=== PATIENT | female | born 1940 | race Caucasian/White ===

== ENCOUNTER 2021-05-02 14:48 | Outpatient (CLI) | payer MEDICARE, BC ==
[2021-05-02 15:41] LABS: #Basophils 0.1 thou/uL (0.0-0.2); #Eosinphils 0.3 thou/uL (0.0-0.7); #Lymphocytes 3.7 thou/uL (1.20-3.40); #Monocytes 0.6 thou/uL (0.11-0.59); #Neutrophils 4.2 thou/uL (1.40-6.50); %Basophils 1.4 % (0.0-1.0); %Eosinophils 2.9 % (0.0-10.0); %Lymphocytes 41.9 % (21.0-51.0); %Monocytes 6.2 % (0.0-10.0); %Neutrophils 47.5 % (42.0-75.0); Hemoglobin 13.8 g/dL (12.0-16.0); Mean Corpuscular HGB CONC 32.7 g/dL (32.0-36.0); Mean Corpuscular Hemoglobin 30.7 pg (27.0-31.0); Mean Corpuscular Volume 93.9 fL (78.0-98.0); Mean Platelet Volume 6.3 fL (7.4-10.4); Platelet Count 311 thou/uL (130-400); RBC Distribution Width 11.9 % (11.5-14.5); Red Blood Cell (RBC) Count 4.51 mill/uL (4.20-5.40); White Blood Cell (WBC) Count 8.8 thou/uL (4.8-10.8)
[2021-05-02 15:46] LABS: INR-International Normal Ratio 0.9; Prothrombin Time 12.6 sec (12.0-14.7)
[2021-05-02 15:53] LABS: Anion Gap 14 mmol/L (10-20); BUN (Urea Nitrogen) 20 mg/dL (9.8-20.1); Calc. Creatinine Clearance 0 mL/min (70-130); Calcium 9.8 mg/dL (7.8-10.44); Carbon Dioxide 27 mmol/L (23-31); Chloride 105 mmol/L (98-107); Glucose 95 mg/dL (83-110); Potassium 3.9 mmol/L (3.5-5.1); Sodium 142 mmol/L (136-145)
[2021-05-03 01:42] LABS: SARS-CoV-2 PCR by NAA Not Detected (NotDetected)
== END 2021-05-02 14:49 | disposition home or self-care (01) ==
LOC: MADLAB 14:48
PROVIDERS: ATTEND Orthopaedic Surgery
DX: Z01.812 Encounter for preprocedural laboratory examination (principal); T84.54XA Infection and inflammatory reaction due to internal left knee prosthesis, initial encounter; Z20.822 Contact with and (suspected) exposure to COVID-19
CPT/HCPCS: 36415; 80048; 85025; 85610; U0003; U0005

== ENCOUNTER 2021-05-16 13:51 | Inpatient (IN) | payer MEDICARE, BC ==
[2021-05-16] MEDS ORDERED: traMADol HCl 50 MG TAB PO PRN ×2 (17:32)
[2021-05-16] MEDS ORDERED: Melatonin 3 MG TAB PO PRN (17:32)
[2021-05-16] MEDS ORDERED: Triamterene/Hydrochlorothiazide 37.5 mg/25 mg Tablet PO SCH (18:08)
[2021-05-16] MEDS ORDERED: cefTRIAXone\\ROCEPHIN 2 GM in Sodium Chloride 0.9% 100 ML IVPB SCH (18:30)
[2021-05-16] MEDS: cefTRIAXone\\ROCEPHIN 2 GM in Sodium Chloride 0.9% 100 ML IVPB SCH (20:22)
[2021-05-16] MEDS: Aspirin 81 mg Enteric Coated Tablet PO SCH (20:23)
[2021-05-16] MEDS: Ferrous Gluconate 324 MG TAB PO SCH (20:23)
[2021-05-16] MEDS: Senokot S 8.6-50 MG TAB PO SCH (20:23)
[2021-05-16] MEDS: Metoprolol Tartrate 25 MG TAB PO SCH (20:23)
[2021-05-17] MEDS: Levothyroxine Sodium 125 MCG TAB PO SCH (05:11)
[2021-05-17 05:30] LABS: #Basophils 0.2 thou/uL (0.0-0.2); #Eosinphils 0.4 thou/uL (0.0-0.7); #Lymphocytes 4.5 thou/uL (1.20-3.40); #Monocytes 0.9 thou/uL (0.11-0.59); #Neutrophils 4.2 thou/uL (1.40-6.50); %Basophils 1.6 % (0.0-1.0); %Eosinophils 3.5 % (0.0-10.0); %Lymphocytes 44.5 % (21.0-51.0); %Neutrophils 41.5 % (42.0-75.0); Hemoglobin 13.6 g/dL (12.0-16.0); Mean Corpuscular HGB CONC 32.5 g/dL (32.0-36.0); Mean Corpuscular Hemoglobin 30.7 pg (27.0-31.0); Mean Corpuscular Volume 94.3 fL (78.0-98.0); Mean Platelet Volume 6.5 fL (7.4-10.4); Platelet Count 517 thou/uL (130-400); RBC Distribution Width 11.9 % (11.5-14.5); Red Blood Cell (RBC) Count 4.43 mill/uL (4.20-5.40); White Blood Cell (WBC) Count 10.2 thou/uL (4.8-10.8)
[2021-05-17 05:40] LABS: Anion Gap 13 mmol/L (10-20); BUN (Urea Nitrogen) 14 mg/dL (9.8-20.1); Calc. Creatinine Clearance 60 mL/min (70-130); Calcium 9.1 mg/dL (7.8-10.44); Carbon Dioxide 26 mmol/L (23-31); Chloride 102 mmol/L (98-107); Glucose 117 mg/dL (83-110); Potassium 3.2 mmol/L (3.5-5.1); Sodium 138 mmol/L (136-145)
[2021-05-17] MEDS: Metoprolol Tartrate 25 MG TAB PO SCH ×2 (08:38→20:08)
[2021-05-17] MEDS: Multivit, Therapeutic 1 TAB PO SCH (08:38)
[2021-05-17] MEDS: Senokot S 8.6-50 MG TAB PO SCH ×2 (08:38→20:07)
[2021-05-17] MEDS: Aspirin 81 mg Enteric Coated Tablet PO SCH ×2 (08:39→20:06)
[2021-05-17] MEDS: Ferrous Gluconate 324 MG TAB PO SCH ×2 (08:39→20:16)
[2021-05-17] MEDS: Potassium Chloride 10 MEQ TAB PO SCH (08:39)
[2021-05-17] MEDS ORDERED: Vancomycin HCl 750 MG in Sodium Chloride 0.9% 250 ML 250 ML IVPB SCH (09:00)
[2021-05-17] MEDS ORDERED: Vancomycin HCl 1 GM in Sodium Chloride 0.9% 250 ML 250 ML IVPB SCH (10:00)
[2021-05-17] MEDS ORDERED: cefTRIAXone\\ROCEPHIN 2 GM VIAL IVPB SCH (13:00)
[2021-05-17] MEDS: cefTRIAXone\\ROCEPHIN 2 GM in Sodium Chloride 0.9% 100 ML IVPB SCH (19:27)
[2021-05-18] MEDS: Levothyroxine Sodium 125 MCG TAB PO SCH (05:22)
[2021-05-18] MEDS: Aspirin 81 mg Enteric Coated Tablet PO SCH ×2 (08:47→20:19)
[2021-05-18] MEDS: Senokot S 8.6-50 MG TAB PO SCH ×2 (08:47→20:18)
[2021-05-18] MEDS: Metoprolol Tartrate 25 MG TAB PO SCH ×2 (08:47→20:18)
[2021-05-18] MEDS: Potassium Chloride 10 MEQ TAB PO SCH (08:47)
[2021-05-18] MEDS: Triamterene/Hydrochlorothiazide 37.5 mg/25 mg Tablet PO SCH (08:47)
[2021-05-18] MEDS: Multivit, Therapeutic 1 TAB PO SCH (08:47)
[2021-05-18] MEDS: Ferrous Gluconate 324 MG TAB PO SCH ×2 (08:48→20:18)
[2021-05-18] MEDS: Vancomycin HCl 750 MG in Sodium Chloride 0.9% 250 ML 250 ML IVPB SCH ×2 (08:49→10:00)
[2021-05-18] MEDS: Loratadine 10 MG TAB PO PRN (10:02)
[2021-05-18] MEDS: Acetaminophen 325 MG TAB PO PRN (20:17)
[2021-05-18] MEDS: cefTRIAXone\\ROCEPHIN 2 GM in Sodium Chloride 0.9% 100 ML IVPB SCH (20:19)
[2021-05-19] MEDS: Levothyroxine Sodium 125 MCG TAB PO SCH (05:33)
[2021-05-19] MEDS: Multivit, Therapeutic 1 TAB PO SCH (08:29)
[2021-05-19] MEDS: Potassium Chloride 10 MEQ TAB PO SCH (08:29)
[2021-05-19] MEDS: Metoprolol Tartrate 25 MG TAB PO SCH ×2 (08:29→20:08)
[2021-05-19] MEDS: Senokot S 8.6-50 MG TAB PO SCH ×2 (08:29→20:06)
[2021-05-19] MEDS: Aspirin 81 mg Enteric Coated Tablet PO SCH ×2 (08:29→20:07)
[2021-05-19] MEDS: Ferrous Gluconate 324 MG TAB PO SCH ×2 (08:29→20:07)
[2021-05-19] MEDS: Vancomycin HCl 750 MG in Sodium Chloride 0.9% 250 ML 250 ML IVPB SCH ×2 (08:30→10:03)
[2021-05-19 14:24] LABS: SARS-CoV-2 PCR by NAA Not Detected (NotDetected)
[2021-05-19] MEDS: cefTRIAXone\\ROCEPHIN 2 GM in Sodium Chloride 0.9% 100 ML IVPB SCH (19:29)
[2021-05-19] MEDS: Acetaminophen 325 MG TAB PO PRN (20:05)
[2021-05-19] MEDS: Loratadine 10 MG TAB PO PRN (20:08)
[2021-05-19] MEDS: Ondansetron ODT 4 MG TAB PO PRN (22:12)
[2021-05-20 05:21] LABS: #Basophils 0.1 thou/uL (0.0-0.2); #Eosinphils 0.4 thou/uL (0.0-0.7); #Lymphocytes 3.7 thou/uL (1.20-3.40); #Monocytes 0.6 thou/uL (0.11-0.59); #Neutrophils 3.2 thou/uL (1.40-6.50); %Basophils 1.3 % (0.0-1.0); %Eosinophils 4.4 % (0.0-10.0); %Lymphocytes 46.2 % (21.0-51.0); %Monocytes 7.7 % (0.0-10.0); %Neutrophils 40.3 % (42.0-75.0); Hemoglobin 11.7 g/dL (12.0-16.0); Mean Corpuscular HGB CONC 32.3 g/dL (32.0-36.0); Mean Corpuscular Hemoglobin 30.6 pg (27.0-31.0); Mean Platelet Volume 5.7 fL (7.4-10.4); Platelet Count 420 thou/uL (130-400); RBC Distribution Width 12.3 % (11.5-14.5); Red Blood Cell (RBC) Count 3.81 mill/uL (4.20-5.40); White Blood Cell (WBC) Count 7.9 thou/uL (4.8-10.8)
[2021-05-20 05:37] LABS: Anion Gap 14 mmol/L (10-20); BUN (Urea Nitrogen) 16 mg/dL (9.8-20.1); CRP (Inflammatory) 2.56 mg/dL (= or < 0.5); Calc. Creatinine Clearance 57 mL/min (70-130); Calcium 8.6 mg/dL (7.8-10.44); Carbon Dioxide 25 mmol/L (23-31); Chloride 108 mmol/L (98-107); Glucose 107 mg/dL (83-110); Potassium 4.1 mmol/L (3.5-5.1); Sodium 143 mmol/L (136-145)
[2021-05-20] MEDS: Levothyroxine Sodium 125 MCG TAB PO SCH (05:45)
[2021-05-20 08:15] LABS: Vancomycin, Trough 20.4 ug/mL
[2021-05-20] MEDS: Metoprolol Tartrate 25 MG TAB PO SCH ×2 (08:29→20:12)
[2021-05-20] MEDS: Aspirin 81 mg Enteric Coated Tablet PO SCH ×2 (08:29→20:12)
[2021-05-20] MEDS: Multivit, Therapeutic 1 TAB PO SCH (08:29)
[2021-05-20] MEDS: Potassium Chloride 10 MEQ TAB PO SCH (08:30)
[2021-05-20] MEDS: Senokot S 8.6-50 MG TAB PO SCH ×2 (08:30→20:13)
[2021-05-20] MEDS: Ferrous Gluconate 324 MG TAB PO SCH ×2 (08:30→20:12)
[2021-05-20] MEDS: Vancomycin HCl 750 MG in Sodium Chloride 0.9% 250 ML 250 ML IVPB SCH ×2 (08:32→08:33)
[2021-05-20] MEDS: Loratadine 10 MG TAB PO PRN (15:28)
[2021-05-20] MEDS: cefTRIAXone\\ROCEPHIN 2 GM in Sodium Chloride 0.9% 100 ML IVPB SCH (20:07)
[2021-05-20] MEDS: Acetaminophen 325 MG TAB PO PRN (21:56)
[2021-05-21] MEDS: Levothyroxine Sodium 125 MCG TAB PO SCH (05:28)
[2021-05-21] MEDS: Ondansetron ODT 4 MG TAB PO PRN (07:19)
[2021-05-21] MEDS: Vancomycin HCl 750 MG in Sodium Chloride 0.9% 250 ML 250 ML IVPB SCH ×2 (08:03)
[2021-05-21] MEDS: Metoprolol Tartrate 25 MG TAB PO SCH ×2 (08:05→20:24)
[2021-05-21] MEDS: Multivit, Therapeutic 1 TAB PO SCH (08:05)
[2021-05-21] MEDS: Triamterene/Hydrochlorothiazide 37.5 mg/25 mg Tablet PO SCH (08:05)
[2021-05-21] MEDS: Ferrous Gluconate 324 MG TAB PO SCH ×2 (08:05→20:11)
[2021-05-21] MEDS: Aspirin 81 mg Enteric Coated Tablet PO SCH ×2 (08:05→20:11)
[2021-05-21] MEDS: Senokot S 8.6-50 MG TAB PO SCH ×2 (08:05→20:10)
[2021-05-21] MEDS: Potassium Chloride 10 MEQ TAB PO SCH (08:05)
[2021-05-21] MEDS: Acetaminophen 325 MG TAB PO PRN ×2 (12:07→20:26)
[2021-05-21] MEDS: Loratadine 10 MG TAB PO PRN (15:11)
[2021-05-21] MEDS: cefTRIAXone\\ROCEPHIN 2 GM in Sodium Chloride 0.9% 100 ML IVPB SCH (20:06)
[2021-05-22] MEDS: Levothyroxine Sodium 125 MCG TAB PO SCH (05:33)
[2021-05-22 08:53] LABS: Vancomycin, Trough 18.2 ug/mL
[2021-05-22] MEDS: Potassium Chloride 10 MEQ TAB PO SCH (09:00)
[2021-05-22] MEDS: Senokot S 8.6-50 MG TAB PO SCH ×2 (09:00→20:12)
[2021-05-22] MEDS: Aspirin 81 mg Enteric Coated Tablet PO SCH ×2 (09:00→20:13)
[2021-05-22] MEDS: Metoprolol Tartrate 25 MG TAB PO SCH ×2 (09:01→20:13)
[2021-05-22] MEDS: Vancomycin HCl 750 MG in Sodium Chloride 0.9% 250 ML 250 ML IVPB SCH ×2 (09:01→09:02)
[2021-05-22] MEDS: Multivit, Therapeutic 1 TAB PO SCH (09:01)
[2021-05-22] MEDS: Ferrous Gluconate 324 MG TAB PO SCH ×2 (09:03→20:15)
[2021-05-22] MEDS: Loratadine 10 MG TAB PO PRN (14:10)
[2021-05-22] MEDS: Acetaminophen 325 MG TAB PO PRN (20:13)
[2021-05-22] MEDS: cefTRIAXone\\ROCEPHIN 2 GM in Sodium Chloride 0.9% 100 ML IVPB SCH (20:15)
[2021-05-23] MEDS: Levothyroxine Sodium 125 MCG TAB PO SCH (06:09)
[2021-05-23] MEDS: Potassium Chloride 10 MEQ TAB PO SCH (08:00)
[2021-05-23] MEDS: Multivit, Therapeutic 1 TAB PO SCH (08:35)
[2021-05-23] MEDS: Ferrous Gluconate 324 MG TAB PO SCH ×2 (08:35→20:00)
[2021-05-23] MEDS: Senokot S 8.6-50 MG TAB PO SCH ×2 (08:35→19:59)
[2021-05-23] MEDS: Triamterene/Hydrochlorothiazide 37.5 mg/25 mg Tablet PO SCH (08:36)
[2021-05-23] MEDS: Metoprolol Tartrate 25 MG TAB PO SCH ×2 (08:36→20:00)
[2021-05-23] MEDS: Aspirin 81 mg Enteric Coated Tablet PO SCH ×2 (08:36→19:59)
[2021-05-23] MEDS: Vancomycin HCl 750 MG in Sodium Chloride 0.9% 250 ML 250 ML IVPB SCH ×2 (08:37)
[2021-05-23] MEDS: Loratadine 10 MG TAB PO PRN (15:18)
[2021-05-23] MEDS: cefTRIAXone\\ROCEPHIN 2 GM in Sodium Chloride 0.9% 100 ML IVPB SCH (19:59)
[2021-05-23] MEDS: Acetaminophen 325 MG TAB PO PRN (20:00)
[2021-05-24] MEDS: Levothyroxine Sodium 125 MCG TAB PO SCH (05:51)
[2021-05-24] MEDS: Ferrous Gluconate 324 MG TAB PO SCH ×2 (08:15→21:20)
[2021-05-24] MEDS: Aspirin 81 mg Enteric Coated Tablet PO SCH ×2 (08:15→21:20)
[2021-05-24] MEDS: Potassium Chloride 10 MEQ TAB PO SCH (08:15)
[2021-05-24] MEDS: Multivit, Therapeutic 1 TAB PO SCH (08:16)
[2021-05-24] MEDS: Senokot S 8.6-50 MG TAB PO SCH ×2 (08:16→22:49)
[2021-05-24] MEDS: Metoprolol Tartrate 25 MG TAB PO SCH ×2 (08:16→21:20)
[2021-05-24 08:22] LABS: Vancomycin, Trough 18.6 ug/mL
[2021-05-24] MEDS: Vancomycin HCl 750 MG in Sodium Chloride 0.9% 250 ML 250 ML IVPB SCH ×2 (10:28→10:29)
[2021-05-24] MEDS: cefTRIAXone\\ROCEPHIN 2 GM in Sodium Chloride 0.9% 100 ML IVPB SCH (21:20)
[2021-05-24] MEDS: Acetaminophen 325 MG TAB PO PRN (21:20)
[2021-05-25] MEDS: Levothyroxine Sodium 125 MCG TAB PO SCH (05:48)
[2021-05-25] MEDS: Senokot S 8.6-50 MG TAB PO SCH (08:58)
[2021-05-25] MEDS: Aspirin 81 mg Enteric Coated Tablet PO SCH (08:59)
[2021-05-25] MEDS: Ferrous Gluconate 324 MG TAB PO SCH ×2 (08:59→20:28)
[2021-05-25] MEDS: Metoprolol Tartrate 25 MG TAB PO SCH ×2 (08:59→20:29)
[2021-05-25] MEDS: Multivit, Therapeutic 1 TAB PO SCH (08:59)
[2021-05-25] MEDS: Vancomycin HCl 750 MG in Sodium Chloride 0.9% 250 ML 250 ML IVPB SCH ×2 (08:59)
[2021-05-25] MEDS: Potassium Chloride 10 MEQ TAB PO SCH (09:00)
[2021-05-25] MEDS: Triamterene/Hydrochlorothiazide 37.5 mg/25 mg Tablet PO SCH (09:04)
[2021-05-25] MEDS: cefTRIAXone\\ROCEPHIN 2 GM in Sodium Chloride 0.9% 100 ML IVPB SCH (20:21)
[2021-05-26] MEDS: Senokot S 8.6-50 MG TAB PO SCH ×3 (04:26→23:16)
[2021-05-26] MEDS: Levothyroxine Sodium 125 MCG TAB PO SCH ×2 (07:16→08:42)
[2021-05-26] MEDS: Aspirin 81 mg Enteric Coated Tablet PO SCH ×3 (07:16→20:41)
[2021-05-26] MEDS: Vancomycin HCl 750 MG in Sodium Chloride 0.9% 250 ML 250 ML IVPB SCH ×2 (08:41)
[2021-05-26] MEDS: Multivit, Therapeutic 1 TAB PO SCH (08:42)
[2021-05-26] MEDS: Ferrous Gluconate 324 MG TAB PO SCH ×2 (08:43→20:41)
[2021-05-26] MEDS: Potassium Chloride 10 MEQ TAB PO SCH (08:43)
[2021-05-26] MEDS: Metoprolol Tartrate 25 MG TAB PO SCH ×2 (08:43→20:41)
[2021-05-26] MEDS: cefTRIAXone\\ROCEPHIN 2 GM in Sodium Chloride 0.9% 100 ML IVPB SCH (20:39)
[2021-05-26] MEDS: Acetaminophen 325 MG TAB PO PRN (20:40)
[2021-05-27 05:35] LABS: #Basophils 0.1 thou/uL (0.0-0.2); #Eosinphils 0.3 thou/uL (0.0-0.7); #Lymphocytes 2.7 thou/uL (1.20-3.40); #Monocytes 0.5 thou/uL (0.11-0.59); #Neutrophils 2.6 thou/uL (1.40-6.50); %Basophils 2.1 % (0.0-1.0); %Eosinophils 4.4 % (0.0-10.0); %Lymphocytes 44.1 % (21.0-51.0); %Monocytes 7.6 % (0.0-10.0); %Neutrophils 41.8 % (42.0-75.0); Hemoglobin 11.8 g/dL (12.0-16.0); Mean Corpuscular HGB CONC 31.7 g/dL (32.0-36.0); Mean Corpuscular Hemoglobin 30.5 pg (27.0-31.0); Mean Corpuscular Volume 96.2 fL (78.0-98.0); Mean Platelet Volume 6.3 fL (7.4-10.4); Platelet Count 305 thou/uL (130-400); RBC Distribution Width 12.9 % (11.5-14.5); Red Blood Cell (RBC) Count 3.87 mill/uL (4.20-5.40); White Blood Cell (WBC) Count 6.1 thou/uL (4.8-10.8)
[2021-05-27] MEDS: Levothyroxine Sodium 125 MCG TAB PO SCH (05:43)
[2021-05-27 05:52] LABS: Anion Gap 12 mmol/L (10-20); BUN (Urea Nitrogen) 19 mg/dL (9.8-20.1); CRP (Inflammatory) 0.69 mg/dL (= or < 0.5); Calc. Creatinine Clearance 52 mL/min (70-130); Calcium 8.9 mg/dL (7.8-10.44); Carbon Dioxide 26 mmol/L (23-31); Chloride 108 mmol/L (98-107); Glucose 100 mg/dL (83-110); Potassium 4.4 mmol/L (3.5-5.1); Sodium 142 mmol/L (136-145)
[2021-05-27] MEDS: Multivit, Therapeutic 1 TAB PO SCH (09:07)
[2021-05-27] MEDS: Aspirin 81 mg Enteric Coated Tablet PO SCH ×2 (09:07→20:17)
[2021-05-27] MEDS: Vancomycin HCl 750 MG in Sodium Chloride 0.9% 250 ML 250 ML IVPB SCH ×2 (09:07→09:08)
[2021-05-27] MEDS: Ferrous Gluconate 324 MG TAB PO SCH ×2 (09:07→17:13)
[2021-05-27] MEDS: Metoprolol Tartrate 25 MG TAB PO SCH ×2 (09:07→20:17)
[2021-05-27] MEDS: Potassium Chloride 10 MEQ TAB PO SCH (09:07)
[2021-05-27] MEDS: Senokot S 8.6-50 MG TAB PO SCH ×2 (09:07→20:17)
[2021-05-27 11:12] LABS: SARS-CoV-2 PCR by NAA Not Detected (NotDetected)
[2021-05-27] MEDS: cefTRIAXone\\ROCEPHIN 2 GM in Sodium Chloride 0.9% 100 ML IVPB SCH (20:17)
[2021-05-28] MEDS: Levothyroxine Sodium 125 MCG TAB PO SCH (05:44)
[2021-05-28] MEDS: Vancomycin HCl 750 MG in Sodium Chloride 0.9% 250 ML 250 ML IVPB SCH ×2 (09:02→10:29)
[2021-05-28] MEDS: Metoprolol Tartrate 25 MG TAB PO SCH ×2 (09:03→20:05)
[2021-05-28] MEDS: Senokot S 8.6-50 MG TAB PO SCH ×2 (09:03→20:05)
[2021-05-28] MEDS: Potassium Chloride 10 MEQ TAB PO SCH (09:03)
[2021-05-28] MEDS: Multivit, Therapeutic 1 TAB PO SCH (09:03)
[2021-05-28] MEDS: Ferrous Gluconate 324 MG TAB PO SCH ×2 (09:03→18:00)
[2021-05-28] MEDS: Aspirin 81 mg Enteric Coated Tablet PO SCH ×2 (09:03→20:05)
[2021-05-28] MEDS: Triamterene/Hydrochlorothiazide 37.5 mg/25 mg Tablet PO SCH (09:18)
[2021-05-28 11:56] LABS: SARS-CoV-2 PCR by NAA Not Detected (NotDetected)
[2021-05-28] MEDS: cefTRIAXone\\ROCEPHIN 2 GM in Sodium Chloride 0.9% 100 ML IVPB SCH (20:04)
[2021-05-29] MEDS: Levothyroxine Sodium 125 MCG TAB PO SCH (06:05)
[2021-05-29] MEDS: Vancomycin HCl 750 MG in Sodium Chloride 0.9% 250 ML 250 ML IVPB SCH ×2 (08:40→10:34)
[2021-05-29] MEDS: Potassium Chloride 10 MEQ TAB PO SCH (08:52)
[2021-05-29] MEDS: Senokot S 8.6-50 MG TAB PO SCH ×2 (08:53→22:09)
[2021-05-29] MEDS: Multivit, Therapeutic 1 TAB PO SCH (08:53)
[2021-05-29] MEDS: Aspirin 81 mg Enteric Coated Tablet PO SCH ×2 (08:53→20:32)
[2021-05-29] MEDS: Ferrous Gluconate 324 MG TAB PO SCH ×2 (08:53→17:34)
[2021-05-29] MEDS: Metoprolol Tartrate 25 MG TAB PO SCH ×2 (08:53→20:32)
[2021-05-29 09:12] LABS: Vancomycin, Trough 23.1 ug/mL
[2021-05-29] MEDS: Acetaminophen 325 MG TAB PO PRN (20:32)
[2021-05-29] MEDS: cefTRIAXone\\ROCEPHIN 2 GM in Sodium Chloride 0.9% 100 ML IVPB SCH (20:32)
[2021-05-30] MEDS: Levothyroxine Sodium 125 MCG TAB PO SCH (05:50)
[2021-05-30] MEDS: Vancomycin HCl 750 MG in Sodium Chloride 0.9% 250 ML 250 ML IVPB SCH (08:25)
[2021-05-30] MEDS: Senokot S 8.6-50 MG TAB PO SCH ×2 (08:35→20:17)
[2021-05-30] MEDS: Aspirin 81 mg Enteric Coated Tablet PO SCH ×2 (08:35→20:17)
[2021-05-30] MEDS: Potassium Chloride 10 MEQ TAB PO SCH (08:36)
[2021-05-30] MEDS: Ferrous Gluconate 324 MG TAB PO SCH ×2 (08:36→17:20)
[2021-05-30] MEDS: Metoprolol Tartrate 25 MG TAB PO SCH ×2 (08:36→20:17)
[2021-05-30] MEDS: Multivit, Therapeutic 1 TAB PO SCH (08:36)
[2021-05-30] MEDS: Triamterene/Hydrochlorothiazide 37.5 mg/25 mg Tablet PO SCH (08:38)
[2021-05-30] MEDS: Vancomycin HCl 500 MG in Sodium Chloride 0.9% 100 ML IVPB SCH (08:38)
[2021-05-30] MEDS: cefTRIAXone\\ROCEPHIN 2 GM in Sodium Chloride 0.9% 100 ML IVPB SCH (19:40)
[2021-05-31] MEDS: Levothyroxine Sodium 125 MCG TAB PO SCH (06:15)
[2021-05-31] MEDS: Multivit, Therapeutic 1 TAB PO SCH (08:37)
[2021-05-31] MEDS: Ferrous Gluconate 324 MG TAB PO SCH ×2 (08:37→16:54)
[2021-05-31] MEDS: Potassium Chloride 10 MEQ TAB PO SCH (08:37)
[2021-05-31] MEDS: Aspirin 81 mg Enteric Coated Tablet PO SCH ×2 (08:37→20:06)
[2021-05-31] MEDS: Metoprolol Tartrate 25 MG TAB PO SCH ×2 (08:37→20:06)
[2021-05-31] MEDS: Senokot S 8.6-50 MG TAB PO SCH ×2 (08:37→20:06)
[2021-05-31] MEDS: Vancomycin HCl 750 MG in Sodium Chloride 0.9% 250 ML 250 ML IVPB SCH (08:38)
[2021-05-31] MEDS: Vancomycin HCl 500 MG in Sodium Chloride 0.9% 100 ML IVPB SCH (08:47)
[2021-05-31] MEDS: cefTRIAXone\\ROCEPHIN 2 GM in Sodium Chloride 0.9% 100 ML IVPB SCH (20:06)
[2021-06-01] MEDS: Levothyroxine Sodium 125 MCG TAB PO SCH (05:33)
[2021-06-01] MEDS: Vancomycin HCl 500 MG in Sodium Chloride 0.9% 100 ML IVPB SCH (09:03)
[2021-06-01] MEDS: Vancomycin HCl 750 MG in Sodium Chloride 0.9% 250 ML 250 ML IVPB SCH (09:03)
[2021-06-01] MEDS: Senokot S 8.6-50 MG TAB PO SCH ×2 (09:04→20:15)
[2021-06-01] MEDS: Multivit, Therapeutic 1 TAB PO SCH (09:04)
[2021-06-01] MEDS: Metoprolol Tartrate 25 MG TAB PO SCH ×2 (09:04→20:15)
[2021-06-01] MEDS: Aspirin 81 mg Enteric Coated Tablet PO SCH ×2 (09:04→20:15)
[2021-06-01] MEDS: Potassium Chloride 10 MEQ TAB PO SCH (09:05)
[2021-06-01] MEDS: Ferrous Gluconate 324 MG TAB PO SCH ×2 (09:05→16:44)
[2021-06-01] MEDS: Triamterene/Hydrochlorothiazide 37.5 mg/25 mg Tablet PO SCH (09:07)
[2021-06-01] MEDS: cefTRIAXone\\ROCEPHIN 2 GM in Sodium Chloride 0.9% 100 ML IVPB SCH (20:14)
[2021-06-02] MEDS: Levothyroxine Sodium 125 MCG TAB PO SCH (05:38)
[2021-06-02] MEDS: Ferrous Gluconate 324 MG TAB PO SCH ×2 (08:46→16:51)
[2021-06-02] MEDS: Multivit, Therapeutic 1 TAB PO SCH (08:46)
[2021-06-02] MEDS: Aspirin 81 mg Enteric Coated Tablet PO SCH ×2 (08:46→20:53)
[2021-06-02] MEDS: Potassium Chloride 10 MEQ TAB PO SCH (08:46)
[2021-06-02] MEDS: Metoprolol Tartrate 25 MG TAB PO SCH ×2 (08:46→20:53)
[2021-06-02] MEDS: Vancomycin HCl 750 MG in Sodium Chloride 0.9% 250 ML 250 ML IVPB SCH (08:47)
[2021-06-02] MEDS: Vancomycin HCl 500 MG in Sodium Chloride 0.9% 100 ML IVPB SCH (08:47)
[2021-06-02] MEDS: Senokot S 8.6-50 MG TAB PO SCH ×2 (08:48→20:53)
[2021-06-02] MEDS: cefTRIAXone\\ROCEPHIN 2 GM in Sodium Chloride 0.9% 100 ML IVPB SCH (19:37)
[2021-06-03 05:19] LABS: #Basophils 0.1 thou/uL (0.0-0.2); #Eosinphils 0.3 thou/uL (0.0-0.7); #Lymphocytes 2.1 thou/uL (1.20-3.40); #Monocytes 0.4 thou/uL (0.11-0.59); #Neutrophils 2.1 thou/uL (1.40-6.50); %Basophils 1.9 % (0.0-1.0); %Eosinophils 5.1 % (0.0-10.0); %Lymphocytes 42.4 % (21.0-51.0); %Monocytes 8.5 % (0.0-10.0); Hemoglobin 12.5 g/dL (12.0-16.0); Mean Corpuscular HGB CONC 33.2 g/dL (32.0-36.0); Mean Corpuscular Hemoglobin 31.5 pg (27.0-31.0); Mean Corpuscular Volume 94.7 fL (78.0-98.0); Mean Platelet Volume 6.8 fL (7.4-10.4); Platelet Count 239 thou/uL (130-400); RBC Distribution Width 12.2 % (11.5-14.5); Red Blood Cell (RBC) Count 3.99 mill/uL (4.20-5.40); White Blood Cell (WBC) Count 4.9 thou/uL (4.8-10.8)
[2021-06-03 05:33] LABS: Anion Gap 10 mmol/L (10-20); BUN (Urea Nitrogen) 17 mg/dL (9.8-20.1); CRP (Inflammatory) Less than 0.50 mg/dL (= or < 0.5); Calc. Creatinine Clearance 56 mL/min (70-130); Calcium 9.2 mg/dL (7.8-10.44); Carbon Dioxide 29 mmol/L (23-31); Chloride 108 mmol/L (98-107); Glucose 102 mg/dL (83-110); Sodium 143 mmol/L (136-145)
[2021-06-03] MEDS: Levothyroxine Sodium 125 MCG TAB PO SCH (05:37)
[2021-06-03] MEDS: Multivit, Therapeutic 1 TAB PO SCH (08:51)
[2021-06-03] MEDS: Potassium Chloride 10 MEQ TAB PO SCH (08:51)
[2021-06-03] MEDS: Metoprolol Tartrate 25 MG TAB PO SCH ×2 (08:51→20:33)
[2021-06-03] MEDS: Ferrous Gluconate 324 MG TAB PO SCH ×2 (08:51→17:16)
[2021-06-03] MEDS: Aspirin 81 mg Enteric Coated Tablet PO SCH ×2 (08:51→20:33)
[2021-06-03] MEDS: Senokot S 8.6-50 MG TAB PO SCH ×2 (08:52→20:33)
[2021-06-03] MEDS: Vancomycin HCl 750 MG in Sodium Chloride 0.9% 250 ML 250 ML IVPB SCH (08:52)
[2021-06-03] MEDS: Vancomycin HCl 500 MG in Sodium Chloride 0.9% 100 ML IVPB SCH (08:53)
[2021-06-03] MEDS ORDERED: Diphenoxylate HCl/Atropine Tablet PO PRN (13:20)
[2021-06-03] MEDS: cefTRIAXone\\ROCEPHIN 2 GM in Sodium Chloride 0.9% 100 ML IVPB SCH (20:32)
[2021-06-04] MEDS: Levothyroxine Sodium 125 MCG TAB PO SCH (05:06)
[2021-06-04] MEDS: Multivit, Therapeutic 1 TAB PO SCH (08:25)
[2021-06-04] MEDS: Ferrous Gluconate 324 MG TAB PO SCH ×2 (08:25→17:37)
[2021-06-04] MEDS: Senokot S 8.6-50 MG TAB PO SCH ×3 (08:26→20:01)
[2021-06-04] MEDS: Potassium Chloride 10 MEQ TAB PO SCH (08:26)
[2021-06-04] MEDS: Metoprolol Tartrate 25 MG TAB PO SCH ×2 (08:26→20:00)
[2021-06-04] MEDS: Aspirin 81 mg Enteric Coated Tablet PO SCH ×2 (08:26→20:00)
[2021-06-04] MEDS: Triamterene/Hydrochlorothiazide 37.5 mg/25 mg Tablet PO SCH (08:26)
[2021-06-04] MEDS: Vancomycin HCl 500 MG in Sodium Chloride 0.9% 100 ML IVPB SCH (08:27)
[2021-06-04] MEDS: Vancomycin HCl 750 MG in Sodium Chloride 0.9% 250 ML 250 ML IVPB SCH (08:27)
[2021-06-04] MEDS: Acetaminophen 325 MG TAB PO PRN (18:02)
[2021-06-04] MEDS: cefTRIAXone\\ROCEPHIN 2 GM in Sodium Chloride 0.9% 100 ML IVPB SCH (20:00)
[2021-06-04 21:08] LABS: SARS-CoV-2 PCR by NAA Not Detected (NotDetected)
[2021-06-05] MEDS: Levothyroxine Sodium 125 MCG TAB PO SCH (06:25)
[2021-06-05] MEDS: Aspirin 81 mg Enteric Coated Tablet PO SCH ×2 (07:51→20:39)
[2021-06-05] MEDS: Potassium Chloride 10 MEQ TAB PO SCH (07:51)
[2021-06-05] MEDS: Multivit, Therapeutic 1 TAB PO SCH (07:51)
[2021-06-05] MEDS: Metoprolol Tartrate 25 MG TAB PO SCH ×2 (07:51→20:39)
[2021-06-05] MEDS: Ferrous Gluconate 324 MG TAB PO SCH ×2 (07:51→17:02)
[2021-06-05] MEDS: Vancomycin HCl 750 MG in Sodium Chloride 0.9% 250 ML 250 ML IVPB SCH (07:52)
[2021-06-05] MEDS: Vancomycin HCl 500 MG in Sodium Chloride 0.9% 100 ML IVPB SCH (07:52)
[2021-06-05] MEDS: Senokot S 8.6-50 MG TAB PO SCH ×2 (07:54→20:41)
[2021-06-05] MEDS: cefTRIAXone\\ROCEPHIN 2 GM in Sodium Chloride 0.9% 100 ML IVPB SCH (20:38)
[2021-06-06] MEDS: Levothyroxine Sodium 125 MCG TAB PO SCH (05:29)
[2021-06-06] MEDS: Vancomycin HCl 750 MG in Sodium Chloride 0.9% 250 ML 250 ML IVPB SCH (08:14)
[2021-06-06] MEDS: Multivit, Therapeutic 1 TAB PO SCH (08:14)
[2021-06-06] MEDS: Ferrous Gluconate 324 MG TAB PO SCH ×2 (08:14→17:14)
[2021-06-06] MEDS: Aspirin 81 mg Enteric Coated Tablet PO SCH ×2 (08:14→20:29)
[2021-06-06] MEDS: Potassium Chloride 10 MEQ TAB PO SCH (08:14)
[2021-06-06] MEDS: Triamterene/Hydrochlorothiazide 37.5 mg/25 mg Tablet PO SCH (08:14)
[2021-06-06] MEDS: Metoprolol Tartrate 25 MG TAB PO SCH ×2 (08:14→20:29)
[2021-06-06] MEDS: Vancomycin HCl 500 MG in Sodium Chloride 0.9% 100 ML IVPB SCH (08:15)
[2021-06-06] MEDS: Senokot S 8.6-50 MG TAB PO SCH ×2 (08:15→20:29)
[2021-06-06] MEDS: cefTRIAXone\\ROCEPHIN 2 GM in Sodium Chloride 0.9% 100 ML IVPB SCH (20:18)
[2021-06-07] MEDS: Levothyroxine Sodium 125 MCG TAB PO SCH (05:40)
[2021-06-07] MEDS: Vancomycin HCl 750 MG in Sodium Chloride 0.9% 250 ML 250 ML IVPB SCH (08:14)
[2021-06-07] MEDS: Multivit, Therapeutic 1 TAB PO SCH (08:14)
[2021-06-07] MEDS: Metoprolol Tartrate 25 MG TAB PO SCH ×2 (08:14→20:56)
[2021-06-07] MEDS: Vancomycin HCl 500 MG in Sodium Chloride 0.9% 100 ML IVPB SCH (08:14)
[2021-06-07] MEDS: Potassium Chloride 10 MEQ TAB PO SCH (08:15)
[2021-06-07] MEDS: Aspirin 81 mg Enteric Coated Tablet PO SCH ×2 (08:15→20:55)
[2021-06-07] MEDS: Senokot S 8.6-50 MG TAB PO SCH ×2 (08:15→20:57)
[2021-06-07] MEDS: Ferrous Gluconate 324 MG TAB PO SCH ×2 (08:15→17:25)
[2021-06-07 09:15] LABS: Vancomycin, Trough 44.8 ug/mL
[2021-06-07] MEDS: cefTRIAXone\\ROCEPHIN 2 GM in Sodium Chloride 0.9% 100 ML IVPB SCH (20:55)
[2021-06-08] MEDS: Levothyroxine Sodium 125 MCG TAB PO SCH (05:50)
[2021-06-08 08:48] LABS: Vancomycin, Trough 15.1 ug/mL
[2021-06-08] MEDS: Potassium Chloride 10 MEQ TAB PO SCH (08:58)
[2021-06-08] MEDS: Aspirin 81 mg Enteric Coated Tablet PO SCH ×2 (08:59→20:40)
[2021-06-08] MEDS: Multivit, Therapeutic 1 TAB PO SCH (08:59)
[2021-06-08] MEDS: Ferrous Gluconate 324 MG TAB PO SCH ×2 (08:59→16:55)
[2021-06-08] MEDS: Senokot S 8.6-50 MG TAB PO SCH ×2 (08:59→20:41)
[2021-06-08] MEDS: Metoprolol Tartrate 25 MG TAB PO SCH ×2 (08:59→20:40)
[2021-06-08] MEDS ORDERED: Vancomycin HCl 750 MG in Sodium Chloride 0.9% 250 ML 250 ML IVPB SCH (09:00)
[2021-06-08] MEDS: Triamterene/Hydrochlorothiazide 37.5 mg/25 mg Tablet PO SCH (09:02)
[2021-06-08] MEDS ORDERED: Vancomycin HCl 500 MG in Sodium Chloride 0.9% 100 ML IVPB SCH (10:00)
[2021-06-08] MEDS: Vancomycin HCl 750 MG in Sodium Chloride 0.9% 250 ML 250 ML IVPB SCH (13:51)
[2021-06-08] MEDS: Vancomycin HCl 500 MG in Sodium Chloride 0.9% 100 ML IVPB SCH (13:52)
[2021-06-08] MEDS: cefTRIAXone\\ROCEPHIN 2 GM in Sodium Chloride 0.9% 100 ML IVPB SCH (20:40)
[2021-06-09] MEDS: Levothyroxine Sodium 125 MCG TAB PO SCH (05:59)
[2021-06-09] MEDS: Multivit, Therapeutic 1 TAB PO SCH (08:36)
[2021-06-09] MEDS: Senokot S 8.6-50 MG TAB PO SCH ×2 (08:36→21:22)
[2021-06-09] MEDS: Ferrous Gluconate 324 MG TAB PO SCH ×3 (08:36→17:05)
[2021-06-09] MEDS: Metoprolol Tartrate 25 MG TAB PO SCH ×2 (08:36→21:19)
[2021-06-09] MEDS: Aspirin 81 mg Enteric Coated Tablet PO SCH ×2 (08:36→21:19)
[2021-06-09] MEDS: Potassium Chloride 10 MEQ TAB PO SCH (08:37)
[2021-06-09] MEDS: Vancomycin HCl 500 MG in Sodium Chloride 0.9% 100 ML IVPB SCH (13:19)
[2021-06-09] MEDS: Vancomycin HCl 750 MG in Sodium Chloride 0.9% 250 ML 250 ML IVPB SCH (13:19)
[2021-06-09] MEDS: cefTRIAXone\\ROCEPHIN 2 GM in Sodium Chloride 0.9% 100 ML IVPB SCH (20:56)
[2021-06-10 05:34] LABS: Band 2 % (5-11); Eosinophils 4 % (0-10); Hemoglobin 12.2 g/dL (12.0-16.0); Lymphocytes 51 % (21-51); MDiff Complete? YES; Mean Corpuscular HGB CONC 31.4 g/dL (32.0-36.0); Mean Corpuscular Hemoglobin 30.4 pg (27.0-31.0); Mean Corpuscular Volume 96.6 fL (78.0-98.0); Mean Platelet Volume 7.1 fL (7.4-10.4); Monocytes 13 % (0-10); Neutrophil 27 % (42-75); Platelet Count 208 thou/uL (130-400); RBC Distribution Width 12.5 % (11.5-14.5); Reactive Lymphocytes 3 % (0-10); Red Blood Cell (RBC) Count 4.02 mill/uL (4.20-5.40); White Blood Cell (WBC) Count 6.7 thou/uL (4.8-10.8)
[2021-06-10 05:38] LABS: Anion Gap 9 mmol/L (10-20); BUN (Urea Nitrogen) 20 mg/dL (9.8-20.1); CRP (Inflammatory) Less than 0.50 mg/dL (= or < 0.5); Calc. Creatinine Clearance 64 mL/min (70-130); Carbon Dioxide 30 mmol/L (23-31); Chloride 109 mmol/L (98-107); Glucose 93 mg/dL (83-110); Potassium 3.8 mmol/L (3.5-5.1); Sodium 144 mmol/L (136-145)
[2021-06-10] MEDS: Levothyroxine Sodium 125 MCG TAB PO SCH (05:50)
[2021-06-10] MEDS: Multivit, Therapeutic 1 TAB PO SCH (08:28)
[2021-06-10] MEDS: Potassium Chloride 10 MEQ TAB PO SCH (08:28)
[2021-06-10] MEDS: Ferrous Gluconate 324 MG TAB PO SCH ×2 (08:29→17:33)
[2021-06-10] MEDS: Metoprolol Tartrate 25 MG TAB PO SCH ×2 (08:29→20:09)
[2021-06-10] MEDS: Aspirin 81 mg Enteric Coated Tablet PO SCH ×2 (08:29→20:09)
[2021-06-10] MEDS: Senokot S 8.6-50 MG TAB PO SCH ×2 (08:29→20:09)
[2021-06-10 12:14] LABS: Vancomycin, Trough 13.9 ug/mL
[2021-06-10] MEDS: Vancomycin HCl 750 MG in Sodium Chloride 0.9% 250 ML 250 ML IVPB SCH ×3 (13:12→14:15)
[2021-06-10] MEDS: cefTRIAXone\\ROCEPHIN 2 GM in Sodium Chloride 0.9% 100 ML IVPB SCH (20:08)
[2021-06-11] MEDS: Levothyroxine Sodium 125 MCG TAB PO SCH (06:25)
[2021-06-11] MEDS: Senokot S 8.6-50 MG TAB PO SCH ×2 (08:17→20:24)
[2021-06-11] MEDS: Potassium Chloride 10 MEQ TAB PO SCH (08:17)
[2021-06-11] MEDS: Ferrous Gluconate 324 MG TAB PO SCH ×2 (08:18→16:54)
[2021-06-11] MEDS: Metoprolol Tartrate 25 MG TAB PO SCH ×2 (08:18→20:24)
[2021-06-11] MEDS: Aspirin 81 mg Enteric Coated Tablet PO SCH ×2 (08:18→20:24)
[2021-06-11] MEDS: Triamterene/Hydrochlorothiazide 37.5 mg/25 mg Tablet PO SCH (08:18)
[2021-06-11] MEDS: Multivit, Therapeutic 1 TAB PO SCH (08:18)
[2021-06-11] MEDS: Vancomycin HCl 750 MG in Sodium Chloride 0.9% 250 ML 250 ML IVPB SCH ×2 (13:19→13:20)
[2021-06-11] MEDS: Acetaminophen 325 MG TAB PO PRN (16:54)
[2021-06-11] MEDS: cefTRIAXone\\ROCEPHIN 2 GM in Sodium Chloride 0.9% 100 ML IVPB SCH (20:23)
[2021-06-12] MEDS: Levothyroxine Sodium 125 MCG TAB PO SCH (06:03)
[2021-06-12] MEDS: Potassium Chloride 10 MEQ TAB PO SCH (08:56)
[2021-06-12] MEDS: Metoprolol Tartrate 25 MG TAB PO SCH ×2 (08:56→20:45)
[2021-06-12] MEDS: Aspirin 81 mg Enteric Coated Tablet PO SCH ×2 (08:56→20:45)
[2021-06-12] MEDS: Ferrous Gluconate 324 MG TAB PO SCH ×2 (08:56→17:17)
[2021-06-12] MEDS: Multivit, Therapeutic 1 TAB PO SCH (08:56)
[2021-06-12] MEDS: Senokot S 8.6-50 MG TAB PO SCH ×2 (08:58→20:45)
[2021-06-12] MEDS: Diphenoxylate HCl/Atropine Tablet PO PRN (10:11)
[2021-06-12 12:14] LABS: Vancomycin, Trough 13.7 ug/mL
[2021-06-12] MEDS ORDERED: Vancomycin HCl 1.75 GM in Sodium Chloride 0.9% 500 ML IVPB SCH (13:00)
[2021-06-12] MEDS: Vancomycin HCl 1 GM in Sodium Chloride 0.9% 250 ML 250 ML IVPB SCH (13:23)
[2021-06-12] MEDS: Vancomycin HCl 750 MG in Sodium Chloride 0.9% 250 ML 250 ML IVPB SCH (13:23)
[2021-06-12 14:46] LABS: SARS-CoV-2 PCR by NAA Not Detected (NotDetected)
[2021-06-12] MEDS: Acetaminophen 325 MG TAB PO PRN (17:17)
[2021-06-12] MEDS: cefTRIAXone\\ROCEPHIN 2 GM in Sodium Chloride 0.9% 100 ML IVPB SCH (20:44)
[2021-06-13] MEDS: Levothyroxine Sodium 125 MCG TAB PO SCH (05:40)
[2021-06-13] MEDS: Aspirin 81 mg Enteric Coated Tablet PO SCH ×2 (08:38→20:28)
[2021-06-13] MEDS: Senokot S 8.6-50 MG TAB PO SCH ×2 (08:38→20:29)
[2021-06-13] MEDS: Metoprolol Tartrate 25 MG TAB PO SCH ×2 (08:38→20:28)
[2021-06-13] MEDS: Multivit, Therapeutic 1 TAB PO SCH (08:39)
[2021-06-13] MEDS: Potassium Chloride 10 MEQ TAB PO SCH (08:39)
[2021-06-13] MEDS: Ferrous Gluconate 324 MG TAB PO SCH ×2 (08:39→17:15)
[2021-06-13] MEDS: Loratadine 10 MG TAB PO PRN (08:42)
[2021-06-13] MEDS: Triamterene/Hydrochlorothiazide 37.5 mg/25 mg Tablet PO SCH (08:42)
[2021-06-13] MEDS: Vancomycin HCl 1 GM in Sodium Chloride 0.9% 250 ML 250 ML IVPB SCH (12:56)
[2021-06-13] MEDS: Vancomycin HCl 750 MG in Sodium Chloride 0.9% 250 ML 250 ML IVPB SCH (13:02)
[2021-06-13] MEDS: cefTRIAXone\\ROCEPHIN 2 GM in Sodium Chloride 0.9% 100 ML IVPB SCH (19:52)
[2021-06-14] MEDS: Levothyroxine Sodium 125 MCG TAB PO SCH (05:17)
[2021-06-14] MEDS: Metoprolol Tartrate 25 MG TAB PO SCH ×2 (08:13→20:05)
[2021-06-14] MEDS: Senokot S 8.6-50 MG TAB PO SCH ×2 (08:13→20:06)
[2021-06-14] MEDS: Aspirin 81 mg Enteric Coated Tablet PO SCH ×2 (08:13→20:04)
[2021-06-14] MEDS: Ferrous Gluconate 324 MG TAB PO SCH ×2 (08:13→17:25)
[2021-06-14] MEDS: Acetaminophen 325 MG TAB PO PRN ×2 (08:14→20:05)
[2021-06-14] MEDS: Potassium Chloride 10 MEQ TAB PO SCH (08:14)
[2021-06-14] MEDS: Loratadine 10 MG TAB PO PRN (08:14)
[2021-06-14] MEDS: Multivit, Therapeutic 1 TAB PO SCH (08:14)
[2021-06-14] MEDS: Diphenoxylate HCl/Atropine Tablet PO PRN (09:48)
[2021-06-14 12:16] LABS: Vancomycin, Trough 19.1 ug/mL
[2021-06-14] MEDS: Vancomycin HCl 1 GM in Sodium Chloride 0.9% 250 ML 250 ML IVPB SCH (13:23)
[2021-06-14] MEDS: Vancomycin HCl 750 MG in Sodium Chloride 0.9% 250 ML 250 ML IVPB SCH (13:24)
[2021-06-14] MEDS: cefTRIAXone\\ROCEPHIN 2 GM in Sodium Chloride 0.9% 100 ML IVPB SCH (20:03)
[2021-06-15] MEDS: Levothyroxine Sodium 125 MCG TAB PO SCH (05:50)
[2021-06-15] MEDS: Metoprolol Tartrate 25 MG TAB PO SCH ×2 (09:06→20:06)
[2021-06-15] MEDS: Senokot S 8.6-50 MG TAB PO SCH ×2 (09:06→20:05)
[2021-06-15] MEDS: Aspirin 81 mg Enteric Coated Tablet PO SCH ×2 (09:06→20:05)
[2021-06-15] MEDS: Loratadine 10 MG TAB PO PRN (09:06)
[2021-06-15] MEDS: Ferrous Gluconate 324 MG TAB PO SCH ×2 (09:06→17:19)
[2021-06-15] MEDS: Potassium Chloride 10 MEQ TAB PO SCH (09:06)
[2021-06-15] MEDS: Multivit, Therapeutic 1 TAB PO SCH (09:06)
[2021-06-15] MEDS: Triamterene/Hydrochlorothiazide 37.5 mg/25 mg Tablet PO SCH (09:08)
[2021-06-15] MEDS: Vancomycin HCl 1 GM in Sodium Chloride 0.9% 250 ML 250 ML IVPB SCH (13:36)
[2021-06-15] MEDS: Vancomycin HCl 750 MG in Sodium Chloride 0.9% 250 ML 250 ML IVPB SCH (13:37)
[2021-06-15] MEDS: cefTRIAXone\\ROCEPHIN 2 GM in Sodium Chloride 0.9% 100 ML IVPB SCH (20:04)
[2021-06-15] MEDS: Acetaminophen 325 MG TAB PO PRN (20:05)
[2021-06-16] MEDS: Levothyroxine Sodium 125 MCG TAB PO SCH (05:47)
[2021-06-16] MEDS: Ferrous Gluconate 324 MG TAB PO SCH ×2 (09:06→17:03)
[2021-06-16] MEDS: Multivit, Therapeutic 1 TAB PO SCH (09:07)
[2021-06-16] MEDS: Aspirin 81 mg Enteric Coated Tablet PO SCH ×2 (09:07→19:59)
[2021-06-16] MEDS: Metoprolol Tartrate 25 MG TAB PO SCH ×2 (09:07→19:59)
[2021-06-16] MEDS: Loratadine 10 MG TAB PO PRN (09:07)
[2021-06-16] MEDS: Senokot S 8.6-50 MG TAB PO SCH ×2 (09:07→19:59)
[2021-06-16] MEDS: Potassium Chloride 10 MEQ TAB PO SCH (09:07)
[2021-06-16 12:32] LABS: Vancomycin, Trough 21.8 ug/mL
[2021-06-16] MEDS: Vancomycin 1.5 GRAM/300 ML BAG 1.5 GM in Premix Bag 1 BAG IVPB SCH (13:41)
[2021-06-16] MEDS: cefTRIAXone\\ROCEPHIN 2 GM in Sodium Chloride 0.9% 100 ML IVPB SCH (19:59)
[2021-06-17] MEDS: Levothyroxine Sodium 125 MCG TAB PO SCH (05:11)
[2021-06-17 05:45] LABS: Anion Gap 12 mmol/L (10-20); BUN (Urea Nitrogen) 20 mg/dL (9.8-20.1); CRP (Inflammatory) Less than 0.50 mg/dL (= or < 0.5); Calc. Creatinine Clearance 59 mL/min (70-130); Calcium 9.6 mg/dL (7.8-10.44); Carbon Dioxide 26 mmol/L (23-31); Chloride 109 mmol/L (98-107); Glucose 101 mg/dL (83-110); Potassium 4.1 mmol/L (3.5-5.1); Sodium 143 mmol/L (136-145)
[2021-06-17 05:48] LABS: Band 5 % (5-11); Eosinophils 2 % (0-10); Hemoglobin 11.9 g/dL (12.0-16.0); Lymphocytes 31 % (21-51); MDiff Complete? YES; Mean Corpuscular HGB CONC 32.7 g/dL (32.0-36.0); Mean Corpuscular Hemoglobin 30.9 pg (27.0-31.0); Mean Corpuscular Volume 94.4 fL (78.0-98.0); Mean Platelet Volume 6.6 fL (7.4-10.4); Monocytes 14 % (0-10); Neutrophil 25 % (42-75); Platelet Count 228 thou/uL (130-400); RBC Distribution Width 11.4 % (11.5-14.5); RBC Morphology Normal; Reactive Lymphocytes 21 % (0-10); Red Blood Cell (RBC) Count 3.85 mill/uL (4.20-5.40); White Blood Cell (WBC) Count 5.1 thou/uL (4.8-10.8)
[2021-06-17] MEDS: Metoprolol Tartrate 25 MG TAB PO SCH ×2 (08:38→20:51)
[2021-06-17] MEDS: Aspirin 81 mg Enteric Coated Tablet PO SCH ×2 (08:38→20:51)
[2021-06-17] MEDS: Ferrous Gluconate 324 MG TAB PO SCH ×2 (08:38→17:58)
[2021-06-17] MEDS: Potassium Chloride 10 MEQ TAB PO SCH (08:39)
[2021-06-17] MEDS: Multivit, Therapeutic 1 TAB PO SCH (08:39)
[2021-06-17] MEDS: Senokot S 8.6-50 MG TAB PO SCH ×2 (08:39→20:52)
[2021-06-17 12:00] VITALS: BMI 23.2
[2021-06-17] MEDS: Vancomycin 1.5 GRAM/300 ML BAG 1.5 GM in Premix Bag 1 BAG IVPB SCH (13:42)
[2021-06-17] MEDS: cefTRIAXone\\ROCEPHIN 2 GM in Sodium Chloride 0.9% 100 ML IVPB SCH (20:50)
[2021-06-17] MEDS: Acetaminophen 325 MG TAB PO PRN (20:51)
[2021-06-18] MEDS: Levothyroxine Sodium 125 MCG TAB PO SCH (05:50)
[2021-06-18] MEDS: Ferrous Gluconate 324 MG TAB PO SCH ×2 (08:04→17:48)
[2021-06-18] MEDS: Multivit, Therapeutic 1 TAB PO SCH (08:04)
[2021-06-18] MEDS: Metoprolol Tartrate 25 MG TAB PO SCH ×2 (08:05→20:25)
[2021-06-18] MEDS: Senokot S 8.6-50 MG TAB PO SCH ×2 (08:05→20:26)
[2021-06-18] MEDS: Aspirin 81 mg Enteric Coated Tablet PO SCH ×2 (08:05→20:25)
[2021-06-18] MEDS: Potassium Chloride 10 MEQ TAB PO SCH (08:05)
[2021-06-18] MEDS: Triamterene/Hydrochlorothiazide 37.5 mg/25 mg Tablet PO SCH (08:07)
[2021-06-18 12:28] LABS: Vancomycin, Trough 19.7 ug/mL
[2021-06-18] MEDS: Vancomycin 1.5 GRAM/300 ML BAG 1.5 GM in Premix Bag 1 BAG IVPB SCH (12:59)
[2021-06-18 16:45] LABS: SARS-CoV-2 PCR by NAA Not Detected (NotDetected)
[2021-06-18] MEDS: Acetaminophen 325 MG TAB PO PRN (17:49)
[2021-06-18] MEDS: cefTRIAXone\\ROCEPHIN 2 GM in Sodium Chloride 0.9% 100 ML IVPB SCH (20:25)
[2021-06-19] MEDS: Levothyroxine Sodium 125 MCG TAB PO SCH (05:45)
[2021-06-19] MEDS: Ferrous Gluconate 324 MG TAB PO SCH ×2 (08:11→17:20)
[2021-06-19] MEDS: Metoprolol Tartrate 25 MG TAB PO SCH ×2 (08:11→20:41)
[2021-06-19] MEDS: Aspirin 81 mg Enteric Coated Tablet PO SCH ×2 (08:11→20:41)
[2021-06-19] MEDS: Senokot S 8.6-50 MG TAB PO SCH ×2 (08:11→19:21)
[2021-06-19] MEDS: Multivit, Therapeutic 1 TAB PO SCH (08:11)
[2021-06-19] MEDS: Potassium Chloride 10 MEQ TAB PO SCH (08:11)
[2021-06-19] MEDS: Diphenoxylate HCl/Atropine Tablet PO PRN (08:15)
[2021-06-19] MEDS: Acetaminophen 325 MG TAB PO PRN (08:15)
[2021-06-19] MEDS: Vancomycin 1.5 GRAM/300 ML BAG 1.5 GM in Premix Bag 1 BAG IVPB SCH (13:06)
[2021-06-19] MEDS: cefTRIAXone\\ROCEPHIN 2 GM in Sodium Chloride 0.9% 100 ML IVPB SCH (20:41)
[2021-06-20] MEDS: Levothyroxine Sodium 125 MCG TAB PO SCH (05:28)
[2021-06-20] MEDS: Triamterene/Hydrochlorothiazide 37.5 mg/25 mg Tablet PO SCH (08:19)
[2021-06-20] MEDS: Aspirin 81 mg Enteric Coated Tablet PO SCH ×2 (08:19→20:30)
[2021-06-20] MEDS: Senokot S 8.6-50 MG TAB PO SCH ×2 (08:20→20:30)
[2021-06-20] MEDS: Ferrous Gluconate 324 MG TAB PO SCH ×2 (08:20→18:08)
[2021-06-20] MEDS: Metoprolol Tartrate 25 MG TAB PO SCH ×2 (08:20→20:30)
[2021-06-20] MEDS: Multivit, Therapeutic 1 TAB PO SCH (08:20)
[2021-06-20] MEDS: Vancomycin 1.5 GRAM/300 ML BAG 1.5 GM in Premix Bag 1 BAG IVPB SCH (08:20)
[2021-06-20] MEDS: Potassium Chloride 10 MEQ TAB PO SCH (08:20)
[2021-06-20] MEDS: cefTRIAXone\\ROCEPHIN 2 GM in Sodium Chloride 0.9% 100 ML IVPB SCH (20:29)
[2021-06-20] MEDS: Acetaminophen 325 MG TAB PO PRN (20:36)
[2021-06-21] MEDS: Levothyroxine Sodium 125 MCG TAB PO SCH (05:44)
[2021-06-21 07:38] VITALS: BP 134/72; TEMP 98
[2021-06-21] MEDS: Aspirin 81 mg Enteric Coated Tablet PO SCH (07:45)
[2021-06-21] MEDS: Ferrous Gluconate 324 MG TAB PO SCH (07:45)
[2021-06-21] MEDS: Multivit, Therapeutic 1 TAB PO SCH (07:45)
[2021-06-21] MEDS: Potassium Chloride 10 MEQ TAB PO SCH (07:45)
[2021-06-21] MEDS: Senokot S 8.6-50 MG TAB PO SCH (07:45)
[2021-06-21] MEDS: Metoprolol Tartrate 25 MG TAB PO SCH (07:45)
== END 2021-06-21 10:20 | disposition home or self-care (01) | DRG 560 ==
LOC: MADMS 13:51
PROVIDERS: ADMIT Family Medicine; ATTEND Family Medicine
DX: Z47.1 Aftercare following joint replacement surgery (principal); D62 Acute posthemorrhagic anemia; I10 Essential (primary) hypertension; I48.91 Unspecified atrial fibrillation; E03.9 Hypothyroidism, unspecified; Z66 Do not resuscitate; Z51.5 Encounter for palliative care; R53.81 Other malaise; K21.9 Gastro-esophageal reflux disease without esophagitis; R26.89 Other abnormalities of gait and mobility; D75.839 Thrombocytosis, unspecified; Z20.822 Contact with and (suspected) exposure to COVID-19; Z60.2 Problems related to living alone; R19.7 Diarrhea, unspecified; E87.6 Hypokalemia; Z79.890 Hormone replacement therapy; Z79.891 Long term (current) use of opiate analgesic; Z79.82 Long term (current) use of aspirin; Z79.899 Other long term (current) drug therapy; Z88.8 Allergy status to other drugs, medicaments and biological substances; Z88.6 Allergy status to analgesic agent; Z90.49 Acquired absence of other specified parts of digestive tract; Z90.710 Acquired absence of both cervix and uterus
CPT/HCPCS: 36415; 80048; 80202; 82565; 85025; 86140; J0696; J3370; J3490; J7050; Q0162; U0003; U0005

== ENCOUNTER 2023-12-13 04:41 | Emergency (ER) | payer MEDICARE, BC ==
[2023-12-13 05:20] LABS: Hematocrit 42.6 % (36.0-47.0); Hemoglobin 13.5 g/dL (12.0-16.0); Mean Corpuscular HGB CONC 31.7 g/dL (32.0-36.0); Mean Corpuscular Hemoglobin 31.2 pg (27.0-31.0); Mean Corpuscular Volume 98.4 fl (78.0-98.0); Mean Platelet Volume 6.3 fL (7.4-10.4); Platelet Count 258 10x3/uL (130-400); RBC Distribution Width 12.8 % (11.5-14.5); Red Blood Cell (RBC) Count 4.33 mill/uL (4.20-5.40); White Blood Cell (WBC) Count 9.2 10x3/uL (4.8-10.8)
[2023-12-13] MEDS ORDERED: Ondansetron PF 4 MG/2 ML Vial ONE ×2 (05:20→10:03)
[2023-12-13] MEDS ORDERED: Morphine 4 MG/ML VIAL ONE (05:20)
[2023-12-13 05:27] LABS: ALT (SGPT) 24 U/L (8-55); AST (SGOT) 23 U/L (5-34); Albumin 4.1 g/dL (3.4-4.8); Alkaline Phosphatase 93 U/L (40-110); Anion Gap 16 mmol/L (10-20); BUN (Urea Nitrogen) 27 mg/dL (9.8-20.1); Bilirubin, Total 0.4 mg/dL (0.2-1.2); Calc. Creatinine Clearance 0 mL/min (70-130); Calcium 9.2 mg/dL (7.8-10.44); Carbon Dioxide 24 mmol/L (23-31); Chloride 108 mmol/L (98-107); Estimated GFR 45; Globulin 2.3 g/dL (2.4-3.5); Glucose 116 mg/dL (83-110); Potassium 4.2 mmol/L (3.5-5.1); Protein, Total 6.4 g/dL (5.8-8.1); Sodium 144 mmol/L (136-145)
[2023-12-13 05:28] LABS: Troponin I 0.028 ng/mL (< 0.028)
[2023-12-13 05:55] LABS: Eosinophils 1 % (0-10); Lymphocytes 51 % (21-51); MDiff Complete? YES; Monocytes 4 % (0-10); Neutrophil 41 % (42-75); Platelet Adequacy Comment Appears Adequate
[2023-12-13] MEDS ORDERED: Nitroglycerin 2% Ointment 1 INCH/1 GM Packet ONE (09:18)
[2023-12-13 09:28] LABS: Critical Call Chem Troponin I NUR.BP2@0928; Troponin I 1.699 ng/mL (< 0.028)
[2023-12-13] MEDS ORDERED: Apixaban 5 MG TAB PO SCH (09:45)
[2023-12-13] MEDS ORDERED: Aspirin Chewable 81 MG TAB ONE (09:46)
== END 2023-12-13 10:09 | disposition short-term general hospital (02) ==
LOC: MADERS 04:41
PROVIDERS: ADMIT Internal Medicine
DX: I21.4 Non-ST elevation (NSTEMI) myocardial infarction (principal); E03.9 Hypothyroidism, unspecified; I10 Essential (primary) hypertension; Z79.01 Long term (current) use of anticoagulants
CPT/HCPCS: 71045; 80053; 83880; 84484; 85025; 93005; 96374; 96375; 96376; J2270; J2405

== ENCOUNTER 2024-04-04 05:11 | Emergency (ER) | payer MEDICARE, BC ==
[2024-04-04 05:40] LABS: #Basophils 0.1 thou/uL (0.0-0.2); #Eosinphils 0.2 thou/uL (0.0-0.7); #Lymphocytes 2.8 thou/uL (1.20-3.40); #Monocytes 0.5 thou/uL (0.11-0.59); #Neutrophils 4.8 thou/uL (1.40-6.50); %Basophils 1.1 % (0.0-1.0); %Eosinophils 2.7 % (0.0-10.0); %Monocytes 6.2 % (0.0-10.0); Hematocrit 43.5 % (36.0-47.0); Hemoglobin 14.6 g/dL (12.0-16.0); Mean Corpuscular HGB CONC 33.6 g/dL (32.0-36.0); Mean Corpuscular Volume 95.2 fl (78.0-98.0); Mean Platelet Volume 7.6 fL (7.4-10.4); Platelet Count 270 10x3/uL (130-400); RBC Distribution Width 11.8 % (11.5-14.5); Red Blood Cell (RBC) Count 4.57 mill/uL (4.20-5.40); White Blood Cell (WBC) Count 8.5 10x3/uL (4.8-10.8)
[2024-04-04 05:43] LABS: INR-International Normal Ratio 1.2; Prothrombin Time 14.7 sec (12.0-14.7)
[2024-04-04 05:44] LABS: PTT 29.2 sec (22.9-36.1)
[2024-04-04] MEDS ORDERED: Aspirin Chewable 81 MG TAB ONE (05:44)
[2024-04-04 05:54] LABS: ALT (SGPT) 13 U/L (8-55); AST (SGOT) 15 U/L (5-34); Albumin 3.8 g/dL (3.4-4.8); Alkaline Phosphatase 102 U/L (40-110); Anion Gap 16 mmol/L (10-20); BUN (Urea Nitrogen) 21 mg/dL (9.8-20.1); Bilirubin, Total 0.5 mg/dL (0.2-1.2); Calc. Creatinine Clearance 0 mL/min (70-130); Calcium 9.9 mg/dL (7.8-10.44); Carbon Dioxide 25 mmol/L (23-31); Chloride 104 mmol/L (98-107); Estimated GFR 47; Globulin 2.8 g/dL (2.4-3.5); Glucose 127 mg/dL (83-110); Lipase 20 U/L (8-78); Potassium 3.1 mmol/L (3.5-5.1); Protein, Total 6.6 g/dL (5.8-8.1); Sodium 142 mmol/L (136-145); Troponin I 0.092 ng/mL (< 0.028)
[2024-04-04 05:59] LABS: Critical Call Chem Troponin I ERS.JD@0556
[2024-04-04] MEDS ORDERED: Nitroglycerin 2% Ointment 1 INCH/1 GM Packet ONE (06:11)
[2024-04-04] MEDS ORDERED: Mag-Al 1200 mg/1200 mg/30 ML UDCUP ONE (06:11)
[2024-04-04] MEDS ORDERED: Potassium Chloride 20 MEQ TAB ONE (06:11)
[2024-04-04] MEDS ORDERED: Lidocaine Viscous Sol 2% 15 ml UD Cup ONE (06:12)
[2024-04-04 06:43] LABS: Magnesium 2.2 mg/dL (1.6-2.6)
[2024-04-04] MEDS ORDERED: Hydrochlorothiazide 25 MG TAB ONE (06:47)
[2024-04-04] MEDS ORDERED: Apixaban 5 MG TAB PO SCH (07:00)
[2024-04-04] MEDS ORDERED: Sodium Chloride 0.9% 500 ML ONE (07:06)
[2024-04-04] MEDS ORDERED: Levothyroxine Sodium 125 MCG TAB PO SCH (08:00)
[2024-04-04 08:20] LABS: Critical Call Chem Troponin I @NUR.RGK@0816; Troponin I 0.429 ng/mL (< 0.028)
[2024-04-04 10:35] LABS: Critical Call Chem Troponin I NUR.BP2@1035; Troponin I 1.232 ng/mL (< 0.028)
== END 2024-04-04 11:52 | disposition short-term general hospital (02) ==
LOC: MADERS 05:11
DX: I21.4 Non-ST elevation (NSTEMI) myocardial infarction (principal); I16.1 Hypertensive emergency; E87.6 Hypokalemia; I10 Essential (primary) hypertension; I25.2 Old myocardial infarction; Z79.01 Long term (current) use of anticoagulants; Z79.899 Other long term (current) drug therapy; Z90.49 Acquired absence of other specified parts of digestive tract; Z96.652 Presence of left artificial knee joint
CPT/HCPCS: 71045; 80053; 83690; 83735; 83880; 84484; 85025; 85610; 85730; 93005; 94760; J7030

== ENCOUNTER 2025-04-19 08:52 | Outpatient (CLI) | payer MEDICARE, BC ==
[2025-04-19 09:46] LABS: #Basophils 0.1 thou/uL (0.0-0.2); #Eosinophils 0.2 thou/uL (0.0-0.7); #Lymphocytes 2.0 thou/uL (1.20-3.40); #Monocytes 0.4 thou/uL (0.11-0.59); #Neutrophils 3.3 thou/uL (1.40-6.50); %Basophils 1.7 % (0.0-1.0); %Eosinophils 4.2 % (0.0-10.0); %Lymphocytes 32.9 % (21.0-51.0); %Monocytes 6.2 % (0.0-10.0); %Neutrophils 54.9 % (42.0-75.0); Hematocrit 44.2 % (36.0-47.0); Hemoglobin 14.5 g/dL (12.0-16.0); Mean Corpuscular Hemoglobin 31.3 pg (27.0-31.0); Mean Corpuscular Volume 95.6 fl (78.0-98.0); Platelet Count 271 10x3/uL (130-400); Red Blood Cell (RBC) Count 4.62 mill/uL (4.20-5.40); White Blood Cell (WBC) Count 5.9 10x3/uL (4.8-10.8)
[2025-04-19 09:56] LABS: ALT (SGPT) 8 U/L (Less than 34); AST (SGOT) 14 U/L (11-34); Albumin 3.9 g/dL (3.1-4.5); Alkaline Phosphatase 62 U/L (40-110); Anion Gap 15 mmol/L (10-20); BUN (Urea Nitrogen) 19 mg/dL (9.8-20.1); Bilirubin, Total 0.4 mg/dL (0.3-1.2); Calc. Creatinine Clearance 0 mL/min (70-130); Calcium 8.7 mg/dL (7.8-10.44); Carbon Dioxide 21 mmol/L (23-31); Cardiac Risk 3.0 (Less than 4.5); Chloride 110 mmol/L (98-107); Cholesterol 192 mg/dl (< 200 Desired); Globulin 2.7 g/dL (2.4-3.5); Glucose 105 mg/dL (83-110); HDL Cholesterol 64 mg/dL (>60 Neg Risk); LDL Cholesterol, Calculated 108 mg/dL; Potassium 3.8 mmol/L (3.5-5.1); Sodium 142 mmol/L (136-145); Triglycerides 101 mg/dL (Less than 150)
== END 2025-04-19 08:53 | disposition home or self-care (01) ==
LOC: MADLAB 08:52
PROVIDERS: ATTEND Physician Assistant Medical
DX: I42.0 Dilated cardiomyopathy (principal); I25.10 Atherosclerotic heart disease of native coronary artery without angina pectoris
CPT/HCPCS: 36415; 80053; 80061; 84443; 85025